=== PATIENT | female | born 1980 ===

== ENCOUNTER 2019-02-27 15:16 | Outpatient (CLI) | payer OTHER ==
--- NOTE | 2019-02-27 16:06 | Diagnostic Imaging Report ---
Indication:Thyroid nodule Technique: Grayscale and duplex Doppler imaging of the thyroid gland performed. Comparison: None Findings: The size, contour, and echogenicity of both lobes of the thyroid gland are within normal limits. No nodules or cysts are demonstrated. Right lobe measures 4.7 x 1.2 x 1.6 cm. Left lobe 4.1 x 1.4 x 1.5 cm. IMPRESSION: Negative examination of the thyroid gland. Interpretation is based on ACR Thyroid Imaging Reporting and Data System (ACR TI-RADS).
== END 2019-02-27 17:16 | disposition home or self-care (01) ==
LOC: ULS 15:16
DX: E04.1 Nontoxic single thyroid nodule (principal)
CPT/HCPCS: 76536